=== PATIENT | female | born 2000 | race Caucasian/White ===

== ENCOUNTER 2018-02-14 21:07 | Emergency (ER) | payer MEDICAID ==
[~2018-02-14] VITALS: Ht 172.7 cm; Wt 57.4 kg
[2018-02-14] MEDS ORDERED: ONDANSETRON ODT 8 MG ONE (21:40)
[2018-02-14 21:52] LABS: MEAN CORPUSCULAR HEMOGLOBIN 27.3 pg (27.0-34.8); MEAN CORPUSCULAR HGB CONC 32.6 g/dL (32.4-35.8); MEAN CORPUSCULAR VOLUME 83.9 fL (80-100); MEAN PLATELET VOLUME 9.8 fL (7.4-10.4); PLATELET COUNT 283 x10^3/uL (130-400); RED BLOOD COUNT 5.14 x10^6/uL (3.82-5.3); RED CELL DISTRIBUTION WIDTH 14.1 % (9.6-15.2)
[2018-02-14] MEDS ORDERED: ONDANSETRON ODT 4 MG PO ONE (22:00)
[2018-02-14 22:02] LABS: ALANINE AMINOTRANSFERASE 24 U/L (12-78); ALBUMIN 4.2 g/dL (3.4-5.0); ANION GAP 8 mmol/L (5-15); CALCIUM 8.7 mg/dL (8.5-10.1); CHLORIDE 110 mmol/L (98-107); CREATININE 0.68 mg/dL (0.55-1.02)
[2018-02-14 22:03] LABS: MD YES
[2018-02-14 22:07] LABS: ALKALINE PHOSPHATASE 57 U/L (45-117); BILIRUBIN,TOTAL 0.7 mg/dL (0.2-1.0); TOTAL PROTEIN 7.6 g/dL (6.4-8.2)
[2018-02-14 22:30] LABS: MICROSCOPIC INDICATED
[2018-02-14 22:43] LABS: CULTURE INDICATED? NO
[2018-02-14 22:53] LABS: BAND#(MANUAL) 0.93 x10^3/uL; BANDS%(MANUAL) 5 % (0-7); LYMPH#(MANUAL) 0.56 x10^3/uL (1-6.1); LYMPHS% (MANUAL) 3 % (22-44); MONOS#(MANUAL) 0.37 x10^3/uL (0.3-2.7); MONOS% (MANUAL) 2 % (2-9); SEG#(MANUAL) 16.65 x10^3/uL (1.8-8); SEGS% (MANUAL) 90 % (42-75)
[2018-02-14 22:55] LABS: <PLATELET ESTIMATE> ADEQUATE; <PLT MORPHOLOGY> NORMAL PLT MORPH; HYPOCHROMIA 1+; MICROCYTOSIS 1+
[2018-02-14 23:03] VITALS: BP 108/44
== END 2018-02-14 23:05 | disposition home or self-care (01) ==
LOC: ED 21:46
DX: K52.9 Noninfective gastroenteritis and colitis, unspecified (principal); F17.210 Nicotine dependence, cigarettes, uncomplicated; F12.10 Cannabis abuse, uncomplicated
CPT/HCPCS: 36415; 80053; 81001; 83690; 84703; 85025; 99283; Q0162

== ENCOUNTER 2018-03-08 19:18 | Emergency (ER) | payer MEDICAID ==
[~2018-03-08] VITALS: Ht 172.7 cm; Wt 53.8 kg
--- NOTE | 2018-03-08 20:10 | NUR ---
MARYJANE RN: VIVIEN SAMPLE COLLECTED, ORDERED PER PROTOCOL; LABELED WITH PT. AND SENT TO LAB.
[2018-03-08 20:21] LABS: MICROSCOPIC INDICATED
[2018-03-08] MEDS ORDERED: ONDANSETRON ODT 4 MG PO ONE (20:30)
--- NOTE | 2018-03-08 21:00 | NUR ---
late entry for 2100. first contact with pt. pt c/o v/n x 4 days with right lower dull pain which is on and off. edmd at bedside and aware. edmd explaining poc. pt denies dill/cp/fever/chills at this time. lmp was . pt aox4. resps even and unlabored. no mass/lump noted. pt states "i might be ." pt mother at bedside. bp and spo2 monitors in place.
[2018-03-08 21:14] LABS: BASOPHILS # (AUTO) 0.03 x10^3/uL (0-0.3); BASOPHILS % (AUTO) 0 % (0-1); EOSINOPHILS # (AUTO) 0.25 x10^3/uL (0-0.8); EOSINOPHILS % (AUTO) 2 % (1-7); LYMPHOCYTES % (AUTO) 19 % (22-44); MD NO; MEAN CORPUSCULAR HEMOGLOBIN 27.7 pg (27.0-34.8); MEAN CORPUSCULAR HGB CONC 33.3 g/dL (32.4-35.8); MEAN CORPUSCULAR VOLUME 83.1 fL (80-100); MEAN PLATELET VOLUME 9.3 fL (7.4-10.4); MONOCYTES # (AUTO) 1.18 x10^3/uL (0-1.4); MONOCYTES % (AUTO) 9 % (2-9); NEUTROPHILS # (AUTO) 9.78 x10^3/uL (1.8-8.0); NEUTROPHILS % (AUTO) 70 % (42-75); PLATELET COUNT 369 x10^3/uL (130-400); RED CELL DISTRIBUTION WIDTH 13.5 % (9.6-15.2)
[2018-03-08 21:22] LABS: ALANINE AMINOTRANSFERASE 26 U/L (12-78); ALBUMIN 4.7 g/dL (3.4-5.0); ANION GAP 13 mmol/L (5-15); CALCIUM 9.3 mg/dL (8.5-10.1); CHLORIDE 100 mmol/L (98-107); CREATININE 0.65 mg/dL (0.55-1.02)
--- NOTE | 2018-03-08 21:22 | NUR ---
TO BRIANNA FROM LOBBY VIA W/C
[2018-03-08] MEDS ORDERED: ONDANSETRON ODT 4 MG ONE (21:38)
[2018-03-08 21:40] LABS: ALKALINE PHOSPHATASE 62 U/L (45-117); BILIRUBIN,TOTAL 1.2 mg/dL (0.2-1.0); TOTAL PROTEIN 8.7 g/dL (6.4-8.2)
--- NOTE | 2018-03-08 21:45 | NUR ---
pt medicated per emar. pt tolerated well. pt denies pain and concerns at this time.
--- NOTE | 2018-03-08 21:55 | NUR ---
PT TO US
--- NOTE | 2018-03-08 22:29 | NUR ---
edmd at bedside and explaining results at this time. awaiting futher orders.
[2018-03-08 23:02] VITALS: BP 110/68
--- NOTE | 2018-03-08 23:04 | NUR ---
pt given dc instructions and script. pt educated regarding diclegis rx. pt a&o, resps even and unlabored. pt tolerating PO fluids with no n/v. pt denies pain. pt amb to dc desk with steady gait, accompanied by mother. arron at dc.
== END 2018-03-08 23:04 | disposition home or self-care (01) ==
LOC: ED 21:58
DX: O21.9 Vomiting of pregnancy, unspecified (principal); Z3A.01 Less than 8 weeks gestation of pregnancy
CPT/HCPCS: 36415; 76801; 80053; 81001; 83690; 84702; 85025; 99284; Q0162; 84703

== ENCOUNTER 2018-06-12 14:55 | Emergency (ER) | payer MEDICAID ==
[~2018-06-12] VITALS: Ht 172.7 cm; Wt 67.0 kg
[2018-06-12] MEDS ORDERED: DIPH,PERTUSS(ACELL),TET VAC/PF 0.5 ML IM-VACC ONE ×2 (15:30→15:39)
--- NOTE | 2018-06-12 15:42 | NUR ---
PT STATED SHE HAD TETANUS SHOT "TWO YEARS AGO FOR SCHOOL." YOUSUF VÁZQUEZ.
[2018-06-12] MEDS ORDERED: BACITRACIN ZINC OINT 500U/GM, 0.9 GM ONE (16:44)
[2018-06-12 16:58] VITALS: BP 112/61
== END 2018-06-12 17:05 | disposition home or self-care (01) ==
LOC: ED 15:32
DX: O9A.212 Injury, poisoning and certain other consequences of external causes complicating pregnancy, second trimester (principal); S51.832A Puncture wound without foreign body of left forearm, initial encounter; Z3A.19 19 weeks gestation of pregnancy; W54.0XXA Bitten by dog, initial encounter; Y93.89 Activity, other specified; Y92.89 Other specified places as the place of occurrence of the external cause; Y99.8 Other external cause status
CPT/HCPCS: 99283